=== PATIENT | female | born 1985 | race Two or more races ===

== ENCOUNTER → 2025-09-23 | Outpatient (CLI) | payer OTHER ==
[~2025-09-23] MED LIST: PROHANCE 279.3MG/ML 15ML VIAL ONE; PROHANCE 279.3MG/ML 5ML VIAL ONE
== END ==
LOC: M PLAIMG 12:13
PROVIDERS: ATTEND Obstetrics & Gynecology
DX: D25.9 Leiomyoma of uterus, unspecified (principal); N85.2 Hypertrophy of uterus
CPT/HCPCS: 72197; A9579